=== PATIENT | male | born 1965 | race Caucasian/White ===

== ENCOUNTER 2017-11-07 12:11 | Emergency (ER) | payer OTHER ==
[2017-11-07 12:13] VITALS: BP 138/88; PULSE 95; RESP 14; TEMP 97.9; O2SAT 98
--- NOTE | 2017-11-07 12:45 | RADRPT ---
EXAM DATE/TIME: 11/07/2017 12:32 [place] COMPARISON: No previous studies available for comparison. INDICATIONS : Short of breath with left side chest pains x36 hours. MEDICAL HISTORY : None. SURGICAL HISTORY : None. ENCOUNTER: Initial ACUITY: 3 days PAIN SCORE: 8/10 LOCATION: Left chest FINDINGS: Minimal consolidative changes left base. The right lung is clear. The heart and pulmonary vascularit y are normal. CONCLUSION: Minimal consolidative changes left base suspicious for inflammatory process. Miguel Manning MD FACR on November 07, 2017 at 12:43 Board Certified Radiologist. This report was verified electronically.
[2017-11-07 14:27] LABS: AUTOMATED NEUTROPHIL # 7.5 TH/MM3 (1.8-7.7); BASOPHIL # 0.1 TH/MM3 (0-0.2); BASOPHIL % 0.8 % (0.0-2.0); EOSINOPHIL # 0.2 TH/MM3 (0-0.4); EOSINOPHIL % 2.1 % (0.0-4.0); HEMATOCRIT 44.5 % (39.0-51.0); HEMOGLOBIN 15.7 GM/DL (13.0-17.0); LYMPH % 16.4 % (9.0-44.0); LYMPHOCYTE # 1.7 TH/MM3 (1.0-4.8); MEAN CELL VOLUME 89.3 FL (80.0-100.0); MEAN CORPUSCULAR HEMOGLOBIN 31.4 PG (27.0-34.0); MEAN CORPUSCULAR HGB CONC 35.2 % (32.0-36.0); MEAN PLATELET VOLUME 9.3 FL (7.0-11.0); MONO % 10.2 % (0.0-8.0); MONOCYTE # 1.1 TH/MM3 (0-0.9); NEUT % 70.5 % (16.0-70.0); PLATELET COUNT 158 TH/MM3 (150-450); RED BLOOD COUNT 4.99 MIL/MM3 (4.50-5.90); RED CELL DISTRIBUTION WIDTH 13.6 % (11.6-17.2); WHITE BLOOD COUNT 10.7 TH/MM3 (4.0-11.0)
[2017-11-07 14:35] LABS: PROTHROMBIN TIME - PATIENT 10.1 SEC (9.8-11.6)
[2017-11-07 14:40] LABS: ALBUMIN 4.3 GM/DL (3.4-5.0); ALT (GPT) 23 U/L (12-78); AST (GOT) 13 U/L (15-37); BICARBONATE 26.4 MEQ/L (21.0-32.0); BLOOD UREA NITROGEN 14 MG/DL (7-18); CALCIUM 9.4 MG/DL (8.5-10.1); CHLORIDE 102 MEQ/L (98-107); GLOMERULAR FILTRATION RATE 58 ML/MIN (>89); GLUCOSE,RANDOM 94 MG/DL (74-106); LIPASE 134 U/L (73-393); MAGNESIUM 2.2 MG/DL (1.5-2.5); SODIUM (NA) 138 MEQ/L (136-145)
[2017-11-07 14:44] LABS: ALKALINE PHOSPHATASE 61 U/L (45-117); TOTAL BILIRUBIN ADULT 0.9 MG/DL (0.2-1.0); TOTAL PROTEIN 8.2 GM/DL (6.4-8.2); TROPONIN I LESS THAN 0.02 NG/ML (0.02-0.05)
[2017-11-07] MEDS ORDERED: LEVOFLOXACIN 750 MG TAB PO ONE (14:45)
[2017-11-07] MEDS ORDERED: CIPR-9 PO (15:01)
[2017-11-07] MEDS ORDERED: TRAM50 PO (15:01)
--- NOTE | 2017-11-07 15:01 | PD ---
HPI Chief Complaint: Chest Pain Time Seen by Provider: 14:38 Travel History International Travel<30 days: Yes Contact w/Intl Traveler<30days: Yes Name of Country Traveled to: [place], [place] Traveled to known affect area: No History of Present Illness HPI C/O LEFT SIDED CHEST PAIN, SHARP, WORSE WITH DEEP BREATHING, NO TRAUMA TO LEFT CHEST WALL...ALSO DENIES ANY ALLEVIATING FACTORS....DENIES ASSOC FACTORS SUCH FEVER/COUGH/BACK PAIN/ABDPAIN/N/V/D/....PT ALSO STATES THAT HE HAD ROUTINE STRESS TEST AND COLONOSCOPY JUST BECAUSE OF AGE MILESTONE BOTH OF WHICH WERE NONDIAGNOSTIC AND WITHOUT ANY ABNORMALITY. WAS TOLD BY MATERIALS CLERK NOT TO SEE HIM UNTIL 5 YEARS FROM NOW. NO SMOKING HISTORY ALL:[facility]ES TO [facility] PMX DENIES PFSH Social History Tobacco Use: No Allergies-Medications (Allergen,Severity, Reaction): Coded Allergies: Penicillins (Verified Allergy, Unknown, 11/07/17) Review of Systems Except as stated in HPI: all other systems reviewed are Neg General / Constitutional: No: Fever Eyes: No: Visual changes HENT: No: Headaches Cardiovascular: Positive: Chest Pain or Discomfort Respiratory: No: Shortness of Breath Gastrointestinal: No: Abdominal Pain Genitourinary: No: Dysuria Musculoskeletal: No: Pain Skin: No Rash Neurologic: No: Weakness Psychiatric: No: Depression Endocrine: No: Polydipsia Hematologic/Lymphatic: No: Easy Bruising Physical Exam Narrative GENERAL: SKIN: Warm and dry. HEAD: Atraumatic. Normocephalic. EYES: Pupils equal and round. No scleral icterus. No injection or drainage. ENT: No nasal bleeding or discharge. Mucous membranes pink and moist. NECK: Trachea midline. No JVD. CARDIOVASCULAR: Regular rate and rhythm. RESPIRATORY: No accessory muscle use. Clear to auscultation EXCEPT LEFT FLANK AREA PAIN, BUT NOT REPRODUCIBLE AND SLIGHT CRACKLES HEARD AT LLL BASE ONLY, NO CREPITUS GASTROINTESTINAL: Abdomen soft, non-tender, nondistended. MUSCULOSKELETAL: Extremities without clubbing, cyanosis, or edema. No obvious deformities. NEUROLOGICAL: Awake and alert. No obvious cranial nerve deficits. Motor grossly within normal limits. Five out of 5 muscle strength in the arms and legs. Normal speech. PSYCHIATRIC: Appropriate mood and affect; insight and judgment normal. Data Data Last Documented VS Vital Signs Date Time Temp Pulse Resp B/P (MAP) Pulse Ox O2 Delivery O2 Flow Rate FiO2 11/07/17 12:13 97.9 95 14 138/88 (105) 98 Orders Orders Electrocardiogram (11/07/17 12:23) Ckmb (Isoenzyme) Profile (11/07/17 12:23) Complete Blood Count With Diff (11/07/17 12:23) Comprehensive Metabolic Panel (11/07/17 12:23) Magnesium (Mg) (11/07/17 12:23) Prothrombin Time / Inr (Pt) (11/07/17 12:23) Act Partial Throm Time (Ptt) (11/07/17 12:23) Troponin I (11/07/17 12:23) Lipase (11/07/17 12:23) Chest, Pa & Lat (11/07/17 12:23) CKMB (11/07/17 14:11) CKMB% (11/07/17 14:11) Levofloxacin (Levaquin) (11/07/17 14:45) Labs Laboratory Tests Test 11/07/17 14:11 White Blood Count 10.7 TH/MM3 Red Blood Count 4.99 MIL/MM3 Hemoglobin 15.7 GM/DL Hematocrit 44.5 % Mean Corpuscular Volume 89.3 FL Mean Corpuscular Hemoglobin 31.4 PG Mean Corpuscular Hemoglobin Concent 35.2 % Red Cell Distribution Width 13.6 % Platelet Count 158 TH/MM3 Mean Platelet Volume 9.3 FL Neutrophils (%) (Auto) 70.5 % Lymphocytes (%) (Auto) 16.4 % Monocytes (%) (Auto) 10.2 % Eosinophils (%) (Auto) 2.1 % Basophils (%) (Auto) 0.8 % Neutrophils # (Auto) 7.5 TH/MM3 Lymphocytes # (Auto) 1.7 TH/MM3 Monocytes # (Auto) 1.1 TH/MM3 Eosinophils # (Auto) 0.2 TH/MM3 Basophils # (Auto) 0.1 TH/MM3 CBC Comment DIFF FINAL Differential Comment Prothrombin Time 10.1 SEC Prothromb Time International Ratio 1.0 RATIO Activated Partial Thromboplast Time 25.1 SEC Blood Urea Nitrogen 14 MG/DL Creatinine 1.30 MG/DL Random Glucose 94 MG/DL Total Protein 8.2 GM/DL Albumin 4.3 GM/DL Calcium Level 9.4 MG/DL Magnesium Level 2.2 MG/DL Alkaline Phosphatase 61 U/L Aspartate Amino Transf (AST/SGOT) 13 U/L Alanine Aminotransferase (ALT/SGPT) 23 U/L Total Bilirubin 0.9 MG/DL Sodium Level 138 MEQ/L Potassium Level 4.2 MEQ/L Chloride Level 102 MEQ/L Carbon Dioxide Level 26.4 MEQ/L Anion Gap 10 MEQ/L Estimat Glomerular Filtration Rate 58 ML/MIN Total Creatine Kinase 135 U/L Troponin I LESS THAN 0.02 NG/ML Lipase 134 U/L [facility] Medical Decision Making Medical Screen Exam Complete: Yes Emergency Medical Condition: Yes Medical Record Reviewed: Yes Interpretation(s) NSR 67, NORMAL INTERVALS, NO STEMI PATTERN Differential Diagnosis STEMI V PERICARDITIS V PNA V PTX V RIB FX Narrative Course CXR NEG FOR PTX BUT POSITIVE FOR LLL INFILTRATE C/W PNA. EKG NONDIAGNOSTIC Diagnosis Primary Impression: Walking pneumonia Patient Instructions: Community Acquired Pneumonia (ED), General Instructions Scripts Tramadol (Ultram) 50 Mg Tab 50 MG PO Q6H Y for PAIN, #14 TAB 0 Refills Prov: Fareed Garcia MD 11/07/17 Ciprofloxacin (Cipro) 500 Mg Tab 500 MG PO BID for Infection for 7 Days, #14 TAB 0 Refills Prov: Fareed Garcia MD 11/07/17 Disposition: 01 DISCHARGE HOME Condition: Stable Fareed Garcia MD Nov 07, 2017 15:01
--- NOTE | 2017-11-08 14:11 | EKG ---
Date Performed: 11/07/2017 Time Performed: 14:52:27 PTAGE: 52 years EKG: Sinus rhythm MODERATE INTRAVENTRICULAR CONDUCTION DELAY BORDERLINE ECG NO PREVIOUS TRACING DOCTOR: Daniel Ruffin Interpretating Date/Time 11/08/2017 14:09:49
== END 2017-11-07 15:19 | disposition home or self-care (01) ==
LOC: NEPD 12:11
DX: J18.9 Pneumonia, unspecified organism (principal); Z88.0 Allergy status to penicillin
CPT/HCPCS: 71046; 80053; 82550; 82552; 83690; 83735; 84484; 85025; 85610; 85730; 93005